=== PATIENT | female | born 1995 | race Caucasian/White ===

== ENCOUNTER 2017-12-06 15:58 | Emergency (ER) | payer OTHER ==
[2017-12-06 16:34] VITALS: BP 98/70
--- NOTE | 2017-12-06 16:51 | UC ---
Shoulder Pain HPI - HPI Summary HPI Summary: Pt c/o left shoulder pain that began ~ 6 days ago after lifting heavy pallets and cases at work and felt a "tear" and "pull" in left shoulder and upper back. pt was seen at [address] [place] [address] and had Xray of left shoulder. Pt reports that shoulder xray was "negative" . Pt has not followed up with PCP or orthopedic provider since accident. Pt now states that pain, stiffness, tingling and burning pain is radiating from base of head down back of left arm to finger tips. Denies additional injury. - History of Current Complaint Hx Obtained From: Patient Hx Last Menstrual Period: 11/10/17 ?: No Onset/Duration: Gradual Onset, Lasting Days, Still Present, Worse Since - onset Timing: Constant Severity Initially: Moderate Severity Currently: Moderate Location Of Pain: Is Discrete @ - left neck, upper back and upper extremity, Radiates To - alison left upper extremity Pain Intensity: 4 Character: Dull, Aching, Spasmodic, Stiffness Aggravating Factor(s): Movement Alleviating Factor(s): Rest Associated Signs And Symptoms: Positive: Numbness/Tingling Related History: Dominant Hand Right - Risk Factors Non-Orthopedic Risk Factor: Negative DVT Risk Factors: Negative Septic Arthritis Risk Factor: Negative <Tracy Hoang NP - Last Filed: 12/06/17 16:55> <Viraj Taylor - Last Filed: 12/06/17 18:16> - History of Current Complaint Chief Complaint: UCUpperExtremity Stated Complaint: LEFT ARM COMPLAINT Time Seen by Provider: 12/06/17 16:26 - Allergies/Home Medications Allergies/Adverse Reactions: Allergies Allergy/AdvReac Type Severity Reaction Status Date / Time No Known Allergies Allergy Verified 12/06/17 16:30 Home Medications: Home Medications Acetaminophen [Acetaminophen Extra Strength] 1,000 mg PO Q8H PRN 12/06/17 [ History Confirmed 12/06/17] PMH/Surg Hx/FS Hx/Imm Hx Previously Healthy: Yes - Surgical History Surgical History: Yes Surgery Procedure, Year, and Place: L ear drum. ear tubes - Family History Known Family History: Positive: Cardiac Disease - Social History Occupation: Employed Full-time Lives: With Family Alcohol Use: Rare Substance Use Type: None Smoking Status (MU): Heavy Every Day Tobacco Smoker Type: Cigarettes Amount Used/How Often: 1/2 ppd Have You Smoked in the Last Year: Yes - Immunization History Most Recent Influenza Vaccination: has not had <Tracy Hoang NP Last Filed: 12/06/17 16:55> Review of Systems Constitutional: Negative Skin: Negative Eyes: Negative ENT: Negative Respiratory: Negative Cardiovascular: Negative Gastrointestinal: Negative Genitourinary: Negative Motor: Decreased ROM - left shoulder Neurovascular: Negative Musculoskeletal: Arthralgia - left shoulder and upper back, Decreased ROM - left shoulder, Myalgia Neurological: Paresthesia - left upper extremity Psychological: Negative Is Patient Immunocompromised?: No All Other Systems Reviewed And Are Negative: Yes <Tracy Hoang NP Last Filed: 12/06/17 16:55> Physical Exam Triage Information Reviewed: Yes Appearance: Pain Distress Vital Signs: Initial Vital Signs Temp 99 F 12/06/17 16:26 Pulse 74 12/06/17 16:26 Resp 15 12/06/17 16:26 BP 98/70 12/06/17 16:26 Pulse Ox 100 12/06/17 16:26 Vital Signs Reviewed: Yes Eye Exam: Normal ENT Exam: Normal Dental Exam: Normal Neck exam: Normal Respiratory Exam: Normal Cardiovascular Exam: Normal Musculoskeletal: Positive: Strength Limited @ - left upper extremity, ROM Limited @ - left shoulder, Other: - negative empty can test Neurological Exam: Normal Psychological Exam: Normal Skin Exam: Normal <Tracy Hoang NP Last Filed: 12/06/17 16:55> Vital Signs: Initial Vital Signs Temp 99 F 12/06/17 16:26 Pulse 74 12/06/17 16:26 Resp 15 12/06/17 16:26 BP 98/70 12/06/17 16:26 Pulse Ox 100 12/06/17 16:26 <Viraj Taylor - Last Filed: 12/06/17 18:16> Shoulder Course/Dx - Differential Dx/Diagnosis Differential Diagnosis/HQI/PQRI: Rotator Cuff Injury, Sprain, Strain, Tendonitis Provider Diagnoses: left shoulder pain. trigger point tenderness left upper back/supraspinatus <Tracy Hoang NP Last Filed: 12/06/17 16:55> Discharge - Sign-Out/Discharge Documenting (check all that apply): Discharge/Admit/Transfer - Billing Disposition and Condition Condition: STABLE Disposition: Home <Tracy Hoang NP - Last Filed: 12/06/17 16:55> - Billing Disposition and Condition Condition: STABLE Disposition: Home <Viraj Taylor Jessie - Last Filed: 12/06/17 18:16> - Discharge Plan Condition: Stable Disposition: HOME Prescriptions: Cyclobenzaprine TAB* [Flexeril 10 MG TAB*] 10 mg PO TID PRN #15 tab PRN Reason: Pain Patient Education Materials: Trigger Point Pain (ED), Ice Pack Application (ED) , Shoulder Pain (ED) Referrals: Kenneth Ballesteros MD [Medical Doctor] - As Soon As Possible No Primary Care Phys,NOPCP [Primary Care Provider] - Additional Instructions: Per institutional requirements, I have reviewed the chart, however, I was not consulted specifically or made aware of this patient by the above midlevel provider. I did not personally evaluate, interact with , or disposition this patient.
== END 2017-12-06 16:57 | disposition home or self-care (01) ==
LOC: UCCORT 15:58
DX: M25.512 Pain in left shoulder (principal); M54.6 Pain in thoracic spine; M75.102 Unspecified rotator cuff tear or rupture of left shoulder, not specified as traumatic; X50.9XXA Other and unspecified overexertion or strenuous movements or postures, initial encounter; X50.0XXA Overexertion from strenuous movement or load, initial encounter; Y93.89 Activity, other specified; Y92.9 Unspecified place or not applicable; Y99.0 Civilian activity done for income or pay; F17.210 Nicotine dependence, cigarettes, uncomplicated
CPT/HCPCS: 99212; G0463

== ENCOUNTER 2018-06-13 15:08 | Emergency (ER) | payer OTHER ==
[2018-06-13 16:15] VITALS: BP 112/73
[2018-06-13] MEDS ORDERED: Lidocaine 2% PF * 5 ML VIAL INJ ONE (17:32)
--- NOTE | 2018-06-13 22:08 | UC ---
Skin Complaint HPI - HPI Summary HPI Summary: Pt. is a 23 y.o female who presents to with c/o abscess to left axilla x 2 weeks. Pt. notes chills without fever. Denies N/V. No past medical hx. Pt. states area has progressively become more red and painful. Moving left arm makes sxs worse. Nothing makes sx better. Sxs are mild in severity. - History of Current Complaint Chief Complaint: UCSkin Time Seen by Provider: 06/13/18 17:26 Stated Complaint: LEFT ARM SKIN COMPLAINT Hx Obtained From: Patient Hx Last Menstrual Period: 06/06/18 Pain Intensity: 5 Pain Scale Used: 0-10 Numeric - Allergy/Home Medications Allergies/Adverse Reactions: Allergies Allergy/AdvReac Type Severity Reaction Status Date / Time Penicillins AdvReac bloating Verified 06/13/18 16:15 Home Medications: Home Medications Amoxicillin PO (*) [Amoxicillin 500 MG CAP*] 500 mg PO BID 06/13/18 [History Confirmed 06/13/18] PMH/Surg Hx/FS Hx/Imm Hx Previously Healthy: Yes - Surgical History Surgical History: Yes Surgery Procedure, Year, and Place: L ear drum. ear tubes - Family History Known Family History: Positive: Cardiac Disease - Social History Occupation: Unemployed Lives: With Family Alcohol Use: Rare Substance Use Type: None Smoking Status (MU): Heavy Every Day Tobacco Smoker Type: Cigarettes Amount Used/How Often: 1/4 to 1/2 ppd Have You Smoked in the Last Year: Yes - Immunization History Most Recent Influenza Vaccination: has not had Review of Systems All Other Systems Reviewed And Are Negative: Yes Constitutional: Positive: Chills Gastrointestinal: Positive: Negative Neurovascular: Positive: Negative Musculoskeletal: Positive: Other: - Abscess left axila Is Patient Immunocompromised?: No Physical Exam Triage Information Reviewed: Yes Appearance: Well-Appearing - Pt. sitting on exam table in NAD> Vital Signs: Initial Vital Signs Temp 97.8 F 06/13/18 16:09 Pulse 84 06/13/18 16:09 Resp 17 06/13/18 16:09 BP 112/73 06/13/18 16:09 Pulse Ox 100 06/13/18 16:09 Vital Signs Reviewed: Yes Eyes: Positive: Conjunctiva Clear Neck exam: Normal Neck: Positive: Supple Neurological Exam: Normal Psychological Exam: Normal Skin: Positive: Other - Noted to the left axilla there is a roughly 2cm area of fluctuance with surrounding overlying erythema. Procedures - Incision and Drainage Left Axilla Anesthesia: Local, Lidocaine Instrument(s): Scalpel Packing: Gauze - Copious amount of foul smelling purulent matter drained Course/Dx - Course Course Of Treatment: Pt .with well defined abscess to left axilla. She is afebrile and well appearing. Abscess was incised and drained as noted above. Wound culture obtained. Will start on Clindamycin. Advised pt. to return to UC for wound check and packing removal/change in 48 hours. To apply warm compress. Ibuprofen or tylenol for pain as directed. To return to UC or go to ER for increased redness, swelling, fever, vomiting or if concerned. Pt. understands and agrees with plan. - Differential Diagnoses - Skin Complaint Differential Diagnoses: Abscess, Cellulitis, Lymphadenitis - Diagnoses Provider Diagnosis: Abscess Discharge - Sign-Out/Discharge Documenting (check all that apply): Patient Departure All imaging exams completed and their final reports reviewed: No Studies - Discharge Plan Condition: Improved Disposition: HOME Prescriptions: Clindamycin HCl 300 mg PO QID #40 capsule Ibuprofen TAB* [Motrin TAB* 800 MG] 800 mg PO Q8H #20 tab Patient Education Materials: Abscess (ED) Referrals: JUAN Stanford [Primary Care Provider] - Additional Instructions: Return to urgent care in 48 hours for wound checking and packing change Take antibiotic as directed Ibuprofen for pain as directed Apply warm compresses Return to UC sooner or go to ER for increased redness, swelling, pain, fever, or if concerned - Billing Disposition and Condition Condition: IMPROVED Disposition: Home
== END 2018-06-13 18:05 | disposition home or self-care (01) ==
LOC: UCCORT 15:08
DX: L02.412 Cutaneous abscess of left axilla (principal); Z88.0 Allergy status to penicillin; F17.210 Nicotine dependence, cigarettes, uncomplicated
CPT/HCPCS: 10060; 87070; 87205; 87640; 87641; 99212; G0463

== ENCOUNTER 2018-06-15 11:12 | Emergency (ER) | payer OTHER ==
[2018-06-15 11:46] VITALS: BP 109/57
--- NOTE | 2018-06-15 12:08 | UC ---
Skin Complaint HPI - HPI Summary HPI Summary: abscess left axilla x 5 days had I&D 2 days ago and was placed on Clinda here for recheck and removal of the packing no fever, no chills, no drainage - History of Current Complaint Chief Complaint: UCGeneralIllness Time Seen by Provider: 06/15/18 11:56 Stated Complaint: RECHECK - PACKING Hx Obtained From: Patient Hx Last Menstrual Period: 06/06/18 Onset/Duration: Gradual Onset, Lasting Days - 5, Still Present Timing: Constant Onset Severity: Severe Current Severity: Moderate Pain Intensity: 0 Location: Discrete - right axilla Character: Swelling, Pain, Redness, Raised, Painful Aggravating Factor(s): Touch Alleviating Factor(s): Nothing Associated Signs & Symptoms: Positive: Tenderness. Negative: Nausea, Vomiting, Numbness, Thirst, Diaphoresis, Weakness, Fever, Chills, Drainage - Allergy/Home Medications Allergies/Adverse Reactions: Allergies Allergy/AdvReac Type Severity Reaction Status Date / Time Penicillins AdvReac bloating Verified 06/15/18 11:47 PMH/Surg Hx/FS Hx/Imm Hx Respiratory History: Asthma - Surgical History Surgical History: Yes Surgery Procedure, Year, and Place: L ear drum. ear tubes - Family History Known Family History: Positive: Cardiac Disease - Social History Alcohol Use: Rare Substance Use Type: None Smoking Status (MU): Heavy Every Day Tobacco Smoker Type: Cigarettes Amount Used/How Often: 1/4 to 1/2 ppd Have You Smoked in the Last Year: Yes - Immunization History Most Recent Influenza Vaccination: has not had Review of Systems All Other Systems Reviewed And Are Negative: Yes Constitutional: Positive: Negative Skin: Positive: Other - abscess left axilla ENT: Positive: Negative Respiratory: Positive: Negative Cardiovascular: Positive: Negative Gastrointestinal: Positive: Negative Is Patient Immunocompromised?: No Physical Exam Triage Information Reviewed: Yes Appearance: Well-Appearing, No Pain Distress, Well-Nourished Vital Signs: Initial Vital Signs Temp 98.8 F 06/15/18 11:44 Pulse 69 06/15/18 11:44 Resp 18 06/15/18 11:44 BP 109/57 06/15/18 11:44 Pulse Ox 100 06/15/18 11:44 Vital Signs Reviewed: Yes Eye Exam: Normal Eyes: Positive: Conjunctiva Clear ENT: Positive: Normal ENT inspection, Hearing grossly normal, Pharynx normal Neck: Positive: Supple, Nontender Respiratory: Positive: Chest non-tender, Lungs clear, Normal breath sounds Cardiovascular: Positive: RRR, No Murmur, Pulses Normal Skin: Positive: Other - + abscess left axilla, + erytheam, swelling, tender to touch , no drainage, not fluctuent, no packing noted Course/Dx - Diagnoses Provider Diagnosis: Abscess of axilla, left Discharge - Sign-Out/Discharge Documenting (check all that apply): Patient Departure All imaging exams completed and their final reports reviewed: No Studies - Discharge Plan Condition: Stable Disposition: HOME Patient Education Materials: Abscess (ED) Referrals: No Primary Care Phys,NOPCP [Primary Care Provider] - 3 Days Additional Instructions: cont. with Clinda for a total of 10 days use moist heat compresses, take Tylenol as needed for pain follow up in 3 days if not better - Billing Disposition and Condition Condition: STABLE Disposition: Home
--- NOTE | 2018-06-17 07:42 | ED ---
Progress - Progress Note Progress Note: Culture report from left axillary abscess: Negative for MRSA and staph aureus. It's positive for Peptostreptococcus anaerobius and enterococcus durans Anaerobic sensitivities are not routinely performed. Patient is currently on clindamycin which should cover anaerobic organisms. Please call patient to check if there is improvement. If her symptoms are getting worse, culture sensitivity can be requested at the lab for clindamycin or the antibiotic can be switched. Course/Dx - Diagnoses Provider Diagnoses: Abscess of axilla, left Discharge - Sign-Out/Discharge Documenting (check all that apply): Post-Discharge Follow Up All imaging exams completed and their final reports reviewed: No Studies - Discharge Plan Condition: Stable Disposition: HOME Patient Education Materials: Abscess (ED) Referrals: No Primary Care Phys,NOPCP [Primary Care Provider] - 3 Days Additional Instructions: cont. with Clinda for a total of 10 days use moist heat compresses, take Tylenol as needed for pain follow up in 3 days if not better - Billing Disposition and Condition Condition: STABLE Disposition: Home
== END 2018-06-15 12:10 | disposition home or self-care (01) ==
LOC: UCCORT 11:12
DX: Z51.89 Encounter for other specified aftercare (principal); L02.412 Cutaneous abscess of left axilla; Z88.0 Allergy status to penicillin; F17.210 Nicotine dependence, cigarettes, uncomplicated
CPT/HCPCS: 99211; G0463

== ENCOUNTER 2018-06-29 13:18 | Emergency (ER) | payer OTHER ==
[2018-06-29 14:07] VITALS: BP 124/66
--- NOTE | 2018-06-29 14:51 | UC ---
Skin Complaint HPI - HPI Summary HPI Summary: Pt with recent I+D left axilla with packing. PT states sx resolved. x 2 days return of erythema and swelling. no drainage. no fevers chills + mild TTP. Pt with recurrent abscesses with I+D no analgesia taken. not immunocompromised no MRSA Pt's medications reviewed this visit - History of Current Complaint Chief Complaint: UCSkin Time Seen by Provider: 06/29/18 14:02 Stated Complaint: RECHECK SKIN CONCERN Hx Obtained From: Patient, Medical Records Hx Last Menstrual Period: 06/06 Onset/Duration: Gradual Onset Pain Intensity: 2 - Allergy/Home Medications Allergies/Adverse Reactions: Allergies Allergy/AdvReac Type Severity Reaction Status Date / Time Penicillins AdvReac bloating Verified 06/29/18 14:07 Home Medications: Home Medications Ibuprofen TAB* [Motrin TAB* 800 MG] 800 mg PO Q8H PRN 06/29/18 [History Confirmed 06/29/18] PMH/Surg Hx/FS Hx/Imm Hx Previously Healthy: Yes - Surgical History Surgical History: Yes Surgery Procedure, Year, and Place: L ear drum. ear tubes - Family History Known Family History: Positive: Cardiac Disease, Non-Contributory - Social History Occupation: Works From/At Home Lives: With Family Alcohol Use: Rare Substance Use Type: None Smoking Status (MU): Light Every Day Tobacco Smoker Type: Cigarettes Amount Used/How Often: 1/4 to 1/2 ppd Have You Smoked in the Last Year: Yes - Immunization History Most Recent Influenza Vaccination: has not had Review of Systems All Other Systems Reviewed And Are Negative: Yes Constitutional: Positive: Negative Skin: Positive: Other - left axilla Physical Exam - Summary Physical Exam Summary: Vital Signs Reviewed: Yes A+Ox3, no distress Eyes: Conjunctiva Clear, WILL. EOM intact and full ENT: Hearing grossly normal TM x 2 clear, mmoist, uvula midline, no exudate, no erythema Neck: Positive: Supple Respiratory: Positive: No respiratory distress, No accessory muscle use + CTA throughout no w/r Cardiovascular: RRR nl s1, s2 no m/r CBT <2 sec abd soft + BS nt/nd no guarding, no distension Musculoskeletal Exam: DAVIS x 4 without difficulty Strength Intact, ROM Intact Neurological: Positive: Alert, + sensation throughout Psychological: Positive: Normal Response To Family Skin: Positive: no rash, no ecchymosis leftaxilla 2x2 cm area of erythema and fluctuance with gentle pressure - wound drained copious purluent material culture taken. irrigated with saline, dressing Triage Information Reviewed: Yes Vital Signs: Initial Vital Signs Temp 98.5 F 06/29/18 13:55 Pulse 83 06/29/18 13:55 Resp 20 06/29/18 13:55 BP 124/66 06/29/18 13:55 Pulse Ox 100 06/29/18 13:55 Course/Dx - Course Course Of Treatment: Pt with recurrent abscess pt with small abscess in left axilla - drained in room. culture taken. wound care. Clinda. given recurrent abscess in same location - will refer to general surgery for wound recheck. appt Komal with Dr Clements. heat soaks. wound monitor - Diagnoses Provider Diagnosis: Abscess Discharge - Sign-Out/Discharge Documenting (check all that apply): Patient Departure All imaging exams completed and their final reports reviewed: No Studies - Discharge Plan Condition: Stable Disposition: HOME Prescriptions: Cephalexin CAP* [Keflex 500 CAP*] 500 mg PO TID #30 cap Patient Education Materials: Abscess (ED) Referrals: Hemant Clements MD [Medical Doctor] - (10:45am on 07/03/18) No Primary Care Phys,NOPCP [Primary Care Provider] - Additional Instructions: - Take antibiotics EXACTLY as prescribed. these may cause diarrhea. Eating yogurt or taking pro-biotics will help with diarrhea - Apply warm, wet soaks to your wound 2-3 times a day - cover with antibiotic ointment (polysporin, neosporin) and bandage - Okay to wash with warm,soapy water - pat dry completely - you have a follow-up appointment with a surgeon on 07/03/18 at 10: 45am - Billing Disposition and Condition Condition: STABLE Disposition: Home
== END 2018-06-29 14:55 | disposition home or self-care (01) ==
LOC: UCCORT 13:18
DX: L02.412 Cutaneous abscess of left axilla (principal); Z51.89 Encounter for other specified aftercare; Z88.0 Allergy status to penicillin; F17.210 Nicotine dependence, cigarettes, uncomplicated
CPT/HCPCS: 87070; 87205; 87640; 87641; 99212; G0463